=== PATIENT | male | born 1975 | race Caucasian/White ===

== ENCOUNTER 2021-09-16 09:17 | Outpatient (CLI) | payer OTHER ==
[~2021-09-16 09:17] MED LIST: AVAPRO300 MG; LEVSIN/SL0.125 MG SL; PHENERGAN25 MG PO; PREVACID15 MG; TESSALON PERLE100 M1
[2021-09-16] MEDS ORDERED: CYMBALTA60 MG PO (13:47)
[2021-09-16] MEDS ORDERED: CLONAZEPAM1 MG PO (13:48)
[2021-09-16] MEDS ORDERED: BUSPIRONE HCL10 MG PO (13:48)
[2021-09-16] MEDS ORDERED: TRAZODONE HCL150 MG PO (13:49)
[2021-09-16] MEDS ORDERED: LATUDA40 MG (13:49)
[2021-09-16] MEDS ORDERED: LAMOTRIGINE100 MG PO (13:50)
== END 2021-09-16 09:18 | disposition home or self-care (01) ==
LOC: LAB 09:17
PROVIDERS: ATTEND Orthopaedic Surgery
DX: I10 Essential (primary) hypertension (principal); I49.8 Other specified cardiac arrhythmias; D64.89 Other specified anemias; E88.89 Other specified metabolic disorders; D68.8 Other specified coagulation defects; N39.0 Urinary tract infection, site not specified; Z22.322 Carrier or suspected carrier of Methicillin resistant Staphylococcus aureus; E13.69 Other specified diabetes mellitus with other specified complication; Z76.89 Persons encountering health services in other specified circumstances

== ENCOUNTER 2022-01-07 06:00 | Day surgery (SDC) | payer OTHER ==
[~2022-01-07 06:00] MED LIST changes: +BUSPIRONE HCL10 MG PO; +CLONAZEPAM1 MG PO; +CYMBALTA60 MG PO; +DULOX PO; +LAMOTRIGINE100 MG PO; +LATUDA40 MG; +TEMAZE PO; +TRAZO PO; +TRAZODONE HCL150 MG PO
== END 2022-01-07 10:15 | disposition home or self-care (01) ==
LOC: CIR.AMB 06:00
PROVIDERS: ATTEND Orthopaedic Surgery
DX: M71.342 Other bursal cyst, left hand (principal); Z20.822 Contact with and (suspected) exposure to COVID-19